=== PATIENT | female | born 1990 | race Caucasian/White ===

== ENCOUNTER 2018-04-05 19:23 | Emergency (ER) | payer OTHER ==
--- NOTE | 2018-04-05 19:38 | EDPHY ---
H & P Time Seen by Provider: 04/05/18 19:23 HPI/ROS: HPI Alcohol intoxication. 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 Patient is not on an arc hold currently. Her friend whom she was apparently drinking with called police. If and felt that she was too drunk to walk. The patient tripped and skinned her right knee. The patient states that she is visiting here from [facility] but she does have a [place] license. She denies any assault or other trauma. She states that she has been drinking alcohol only. No IV drugs or street drugs. She is not suicidal. ROS: Constitutional: No fever, no chills. No weakness. Eyes: No discharge. No changes in vision. ENT: No sore throat. No nasal congestion or rhinorrhea. Respiratory: No cough. No shortness of breath. Cardiac: No chest pain, no palpitations. Gastrointestinal: No abdominal pain, no vomiting, no diarrhea. Genitourinary: No hematuria. No dysuria or increased frequency with urination. Musculoskeletal: No back pain. No neck pain. No myalgias or arthralgias. Skin: No rashes. As above. Neurological: No headache. No focal weakness or altered sensation. Past medical history: She has a history of depression and currently takes Prozac. Social history: Nonsmoker. Here currently by herself. As above. Physical Exam: General Appearance: Alert, strong odor of alcohol on her breath. Emotionally labile. This patient is responding to questions appropriately and in full sentences albeit with slurred speech. This patient appears well-hydrated and well-nourished. Eyes: Pupils equal and round no pallor or injection. No lid edema, erythema or injection. Respiratory: There are no retractions, lungs are clear to auscultation with good air movement bilaterally. Cardiovascular: Regular rate and rhythm. No murmur. Gastrointestinal: Abdomen is soft and nontender, no masses, bowel sounds normal. No focal tenderness at McBurney's point. No Fox sign. Neurological: Motor sensory function is grossly intact. Cranial nerves are normal. Gait is normal. Skin: Warm and dry, no rashes. As noted. Right knee exam: She does have a superficial abrasion to the anterior mid right knee. Right knee ranges in flexion and extension without any significant pain or impingement. The right knee stable to valgus and varus stress testing and anterior and posterior drawer testing. Musculoskeletal: Neck is supple and nontender. Extremities are symmetrical. All joints range without pain or impingement. Psychiatric: No agitation. No depression. Database: EKG: Imaging: Procedures: Emergency department course: Triage vital signs reviewed. The patient states that she does have a friend who can come and pick her up when she is appropriately sober to go home. The patient denies severe depression or suicidal ideation. 9:45 p.m., the patient is up and ambulatory with a normal gait. She is going to the bathroom. She feels comfortable being discharged with her friend who is coming to pick her up. Follow-up and return to emergency department precautions have been reviewed with her. All of her questions have been answered. She was discharged from the emergency department in good condition with her friend who is driving. Differential Diagnosis: The differential diagnosis on this patient includes but is not limited to alcohol intoxication. Suicidal ideation, significant traumatic injury unlikely. This represents a partial list of diagnoses considered. These considerations are based on history, physical exam, past history, reassessment and diagnostic testing. Constitutional: Initial Vital Signs Temperature (C) 36.6 C 04/05/18 19:20 Heart Rate 94 04/05/18 19:20 Respiratory Rate 18 04/05/18 19:20 Blood Pressure 116/96 H 04/05/18 19:20 O2 Sat (%) 100 04/05/18 19:20 O2 Delivery Mode Room Air Allergies/Adverse Reactions: No Known Allergies Allergy (Unverified 06/11/11 21:34) Home Medications: Medication Instructions Recorded Citalopram 04/05/18 Departure - Departure Disposition: Home, Routine, Self-Care Clinical Impression: Alcoholic intoxication Condition: Good Instructions: Alcohol Intoxication (ED) Additional Instructions: Read and follow provided instructions. Do not drink alcohol. Return to the emergency department for any serious concerns. Referrals: [facility] 24 Hours [Outside] - As per Instructions
[2018-04-05 21:51] VITALS: BP 103/83
== END 2018-04-05 21:49 | disposition home or self-care (01) ==
LOC: EDUNIT#
DX: F10.920 Alcohol use, unspecified with intoxication, uncomplicated (principal)